=== PATIENT | female | born 1955 | race Caucasian/White ===

== ENCOUNTER 2018-03-01 09:03 | Emergency (ER) | payer MEDICAID, OTHER ==
[2018-03-01 09:06] VITALS: O2SAT 98
--- NOTE | 2018-03-01 10:07 | ED PDOC ---
HPI: General Adult Time Seen by Provider: 03/01/18 09:11 Chief Complaint (Nursing): Hip Pain Chief Complaint (Provider): Left Hip Pain, Left Ankle Pain History Per: Patient History/Exam Limitations: no limitations Onset/Duration Of Symptoms: Days (x1) Current Symptoms Are (Timing): Still Present Additional Complaint(s): 63 year old female presenting for evaluation of left hip pain and left ankle pain s/p fall prior to arrival. Patient states she was at work when she fall after going to sit down and not realizing her chair had been moved. Patient reports she fell backwards and is currently complaining of left hip and left ankle pain. Patient c/o left lower leg localized numbness but no pain. Patient otherwise denies any head injury. Past Medical History Reviewed: Historical Data, Nursing Documentation, Vital Signs Vital Signs: Last Vital Signs Temp 98.7 F 03/01/18 09:05 Pulse 73 03/01/18 09:05 Resp 17 03/01/18 09:05 BP 133/73 03/01/18 09:05 Pulse Ox 98 03/01/18 09:05 - Medical History PMH: Hypothyroidism - Surgical History Surgical History: No Surg Hx - Family History Family History: States: Unknown Family Hx - Home Medications Home Medications: Ambulatory Orders Medication Instructions Recorded Naproxen 500 mg PO BID #20 tab 03/01/18 - Allergies Allergies/Adverse Reactions: Allergies Allergy/AdvReac Type Severity Reaction Status Date / Time No Known Allergies Allergy Verified 03/01/18 09:09 Review of Systems ROS Statement: Except As Marked, All Systems Reviewed And Found Negative Musculoskeletal: Positive for: Other (left ankle pain, left hip pain) Physical Exam - Reviewed Nursing Documentation Reviewed: Yes Vital Signs Reviewed: Yes - Physical Exam Appears: Positive for: Non-toxic, No Acute Distress Head Exam: Positive for: ATRAUMATIC Skin: Positive for: Normal Color, Warm, Dry Eye Exam: Positive for: EOMI ENT: Positive for: Normal ENT Inspection Cardiovascular/Chest: Positive for: Regular Rate, Rhythm Extremity: Positive for: Tenderness (left lateral malleolus tenderness), Other (Left calf and lara: no swelling, no tenderness, soft to palpiation, no ecchimosis). Negative for: Normal ROM ((+) left hip pain with ROM), Deformity, Swelling Neurologic/Psych: Positive for: Alert, Oriented. Negative for: Motor/Sensory Deficits - Laboratory Results Result Diagrams: 03/01/18 11:30 03/01/18 11:30 - ECG O2 Sat by Pulse Oximetry: 98 (RA) Pulse Ox Interpretation: Normal Medical Decision Making Medical Decision Makin Impression: Left hip and left ankle injury. Differential diagnoses include, but are not limited to left hip fracture and left ankle fracture. Plan: -Motrin 600mg PO -Left ankle x-ray -Left hip x-ray -Reevaluation 1050 LEFT ANKLE X-RAY FINDINGS: BONES: No acute fracture. JOINTS: Ankle mortise maintained. Talar dome intact SOFT TISSUES: Lateral malleolar soft tissue swelling. OTHER FINDINGS: None. IMPRESSION: Lateral malleolar soft tissue swelling without demonstrated fracture or dislocation. 1051 LEFT HIP X-RAY FINDINGS: BONES: No acute fracture. JOINTS: Narrowing of both hips. Pubic symphysis sclerotic and degenerative changes. SOFT TISSUES: Normal. OTHER FINDINGS: None. IMPRESSION: No demonstrated fracture or dislocation. Bilateral hip degenerative changes.. 1542 MRI LOWER EXTREMITY FINDINGS: Normal intrinsic signal seen throughout the anterior and posterior muscle compartments. There is no evidence of fracture or other cause of marrow edema. The cortex appears unremarkable throughout. No definitive soft tissue mass is seen or suspicious fluid collection throughout. No MR evidence of compartment syndrome at this time. No subcutaneous or dermal soft tissue findings throughout. Soft tissues deep to an MR sensitive marker placed at the lateral calf skin is unremarkable throughout all sequences. IMPRESSION: Unremarkable left leg MR examination. No fracture, bone or soft tissue lesion identified across numerous sequences including the soft tissues deep to area of clinical concern at the lateral left calf region. Scribe Attestation: Documented by Rajat Barron, acting as a scribe for Johnny Kennedy MD. Provider Scribe Attestation: All medical record entries made by the Scribe were at my direction and p ersonally dictated by me. I have reviewed the chart and agree that the record accurately reflects my personal performance of the history, physical exam, medical decision making, and the department course for this patient. I have also personally directed, reviewed, and agree with the discharge instructions and disposition. Disposition - Clinical Impression Clinical Impression: Contusion of hip, Ankle sprain - Patient ED Disposition Is Patient to be Admitted: Yes Doctor Will See Patient In The: Office Counseled Patient/Family Regarding: Studies Performed, Diagnosis, Need For Followup - Disposition Referrals: Miguel Hunter DO [Non-Staff] - Disposition: Routine/Home Disposition Time: 16:00 Condition: GOOD Additional Instructions: ROSITA LAGUNAS, thank you for letting us take care of you today. Your provider was Johnny Kennedy MD and you were treated for LT HIP PAIN. The emergency m edical care you received today was directed at your acute symptoms. If you were prescribed any medication, please fill it and take as directed. It may take several days for your symptoms to resolve. Return to the Emergency Department if your symptoms worsen, do not improve, or if you have any other problems. Please contact your doctor or call one of the physicians/clinics you have been referred to that are listed on the Patient Visit Information form that is included in your discharge packet. Bring any paperwork you were given at discharge with you along with any medications you are taking to your follow up visit. Our treatment cannot replace ongoing medical care by a primary care provider outside of the emergency department. Thank you for allowing the [facility] team to be part of your care today. If you had an X-Ray or CT scan: A Radiologist will review the ED reading if any change in treatment is needed we will contact you. If you had a blood, urine, or wound culture: It will take several days for the results, if any change in treatment is needed we will contact you. If you had an STI test: It will take 48 hours for the results. Please call after 1 week if you have not heard back. Prescriptions: Naproxen 500 mg PO BID #20 tab Instructions: Ankle Sprain, Hip Pain Print Language: UKRA[place]IAN
--- NOTE | 2018-03-01 10:54 | RAD ---
Date of service: 03/01/2018 PROCEDURE: Left Ankle Radiographs. HISTORY: left ankle pain fall COMPARISON: None available. FINDINGS: BONES: No acute fracture. JOINTS: Ankle mortise maintained. Talar dome intact SOFT TISSUES: Lateral malleolar soft tissue swelling. OTHER FINDINGS: None. IMPRESSION: Lateral malleolar soft tissue swelling without demonstrated fracture or dislocation.
--- NOTE | 2018-03-01 10:55 | RAD ---
PROCEDURE: Left Hip X-ray Radiographs. HISTORY: left hip pain injury fall COMPARISON: None. FINDINGS: BONES: No acute fracture. JOINTS: Narrowing of both hips. Pubic symphysis sclerotic and degenerative changes. SOFT TISSUES: Normal. OTHER FINDINGS: None. IMPRESSION: No demonstrated fracture or dislocation. Bilateral hip degenerative changes..
[2018-03-01 12:05] LABS: HEMOGLOBIN 13.4 g/dL (12.0-16.0); MEAN CELL VOLUME 90.8 fl (81.0-99.0); MEAN CORPUSCULAR HEMOGLOBIN 30.3 pg (27.0-31.0); MEAN CORPUSCULAR HGB CONC 33.4 g/dL (33.0-37.0); RBC 4.44 Mil/uL (3.80-5.20); RED CELL DISTRIBUTION WIDTH 13.9 % (11.5-14.5); WHITE BLOOD COUNT 7.3 K/uL (4.8-10.8)
[2018-03-01 12:19] LABS: BLOOD UREA NITROGEN 14 mg/dl (7-17); GFR NON-AFRICAN AMERICAN > 60
--- NOTE | 2018-03-01 15:46 | MRI ---
Date of service: 03/01/2018 PROCEDURE: MRI LEFT TIBIA AND FIBULA WITHOUT CONTRAST HISTORY: left lower leg pain injury COMPARISON: Left ankle radiographs 03/01/2018 TECHNIQUE: MR examination left tibia-fibula was performed using multiplanar multisequential technique without intravenous gadolinium as clinically requested. FINDINGS: Normal intrinsic signal seen throughout the anterior and posterior muscle compartments. There is no evidence of fracture or other cause of marrow edema. The cortex appears unremarkable throughout. No definitive soft tissue mass is seen or suspicious fluid collection throughout. No MR evidence of compartment syndrome at this time. No subcutaneous or dermal soft tissue findings throughout. Soft tissues deep to an MR sensitive marker placed at the lateral calf skin is unremarkable throughout all sequences. IMPRESSION: Unremarkable left leg MR examination. No fracture, bone or soft tissue lesion identified across numerous sequences including the soft tissues deep to area of clinical concern at the lateral left calf region.
[2018-03-01 16:21] VITALS: BP 142/55; PULSE 60; RESP 16; TEMP 97.8
== END 2018-03-01 16:41 | disposition home or self-care (01) ==
LOC: H.ER 09:03
DX: S70.02XA Contusion of left hip, initial encounter (principal); S99.912A Unspecified injury of left ankle, initial encounter; W19.XXXA Unspecified fall, initial encounter; Y92.89 Other specified places as the place of occurrence of the external cause; E03.9 Hypothyroidism, unspecified